=== PATIENT | female | born 1955 | race Caucasian/White ===

== ENCOUNTER 2017-07-29 20:18 | Emergency (ER) | payer BC, OTHER ==
[~2017-07-29] VITALS: Ht 162.6 cm; Wt 64.0 kg
[~2017-07-29 20:18] MED LIST: IOHEXOL-300 100 ML BOTTLE ONE; SODIUM CHLORIDE 0.9% 10ML VIAL ONE
[2017-07-29] MEDS ORDERED: SODIUM CHLORIDE 0.9% 500 ML IV ONE (20:46)
[2017-07-29] MEDS ORDERED: ONDANSETRON HCL 4MG/2ML VIAL IV STA (20:46)
[2017-07-29] MEDS ORDERED: MORPHINE SULFATE 4 MG/ML CPJ (NOT FOR IM USE) IV STA (20:46)
[2017-07-29 21:14] LABS: BASOPHILS % 0.5 % (0.0-2.0); EOSINOPHILS % 1.2 % (0.0-5.0); HEMATOCRIT. 40.7 % (36.0-48.0); LYMPHOCYTES % 39.2 % (20.0-50.0); MEAN CORPUSCULAR HEMOGLOBIN 29.1 pg (28.0-32.0); MEAN CORPUSCULAR VOLUME 84.6 fL (81.0-99.0); MEAN PLATELET VOLUME 7.8 fl (7.4-10.4); NEUTROPHILS % 49.1 % (40.0-76.0); PLATELET 274 x1000/uL (130-400); RED BLOOD CELL COUNT 4.82 mill/uL (4.2-5.4); RED CELL DISTRIBUTION WIDTH 13.6 % (11.6-14.6)
[2017-07-29 21:16] LABS: CHLORIDE 104 mEq/L (98-107)
[2017-07-29 21:23] LABS: CARBON DIOXIDE 27 mEq/L (21-32)
[2017-07-30] MEDS ORDERED: IBUPROFEN 400MG TABLET PO ONE (00:30)
[2017-07-30 00:33] VITALS: BP 115/79
== END 2017-07-30 00:36 | disposition home or self-care (01) ==
LOC: ER 20:18
DX: M79.1 Myalgia (principal); M54.9 Dorsalgia, unspecified; M54.2 Cervicalgia; M79.605 Pain in left leg; R06.02 Shortness of breath; E78.00 Pure hypercholesterolemia, unspecified; W01.0XXA Fall on same level from slipping, tripping and stumbling without subsequent striking against object, initial encounter; Y93.89 Activity, other specified; Y99.8 Other external cause status; Y92.89 Other specified places as the place of occurrence of the external cause; Z98.890 Other specified postprocedural states
CPT/HCPCS: 36415; 70450; 71260; 72125; 73080; 73552; 73562; 74177; 80053; 85025; 96361; 96374; 96375; 99285; A4216; J2270; J2405; J7030; Q9967; Z7610

== ENCOUNTER 2024-10-16 15:09 | Emergency (ER) | payer MEDICARE, OTHER, SELFPAY ==
[~2024-10-16] VITALS: Ht 154.9 cm; Wt 79.0 kg
[2024-10-16 15:31] VITALS: O2SAT 99
[2024-10-16] MEDS: HYDROCODONE/ACETAMINOPHEN 5/325MG TABLET PO ONE (18:27)
[2024-10-16] MEDS ORDERED: TOPUD MT (18:48)
[2024-10-16] MEDS ORDERED: IBUP-2028 MT (18:48)
[2024-10-16 19:51] VITALS: BP 140/68; PULSE 65; RESP 16; TEMP 36.78072; O2SAT 98
== END 2024-10-16 19:56 | disposition home or self-care (01) ==
LOC: ER 15:09
DX: S42.291A Other displaced fracture of upper end of right humerus, initial encounter for closed fracture (principal); E78.00 Pure hypercholesterolemia, unspecified; W19.XXXA Unspecified fall, initial encounter; X58.XXXA Exposure to other specified factors, initial encounter; Y93.89 Activity, other specified; Y92.89 Other specified places as the place of occurrence of the external cause; Y99.8 Other external cause status
CPT/HCPCS: 73030; 73060; 73090; 73110; 99284; A4565